=== PATIENT | female | born 1950 | race Caucasian/White ===

== ENCOUNTER → 2017-08-19 | Outpatient (CLI) | payer OTHER ==
[~2017-08-19] MED LIST: ALENDRONATE SOD70 MG PO; ASPIR 8181 MG PO; ATORVASTATIN CA40 MG PO; CELEXA40 MG PO; CENTRUM SILVER1 EAC4 PO; COREG3.125 MG PO; EQUETRO200 MG PO; HEADACHE RELIE1 EAC4 PO; HYDROCHLOROTHIA25 M2 PO; KRILL OIL500 MG; MAGNESIUM OXID400 MG PO; METFORMIN HCL500 MG PO; PROBIOTIC1 EAC1 PO; QUINAPRIL HCL40 MG PO; VITAMIN D2000 UNIT PO
== END ==
LOC: RAD 10:48
DX: M19.041 Primary osteoarthritis, right hand (principal); M25.741 Osteophyte, right hand

== ENCOUNTER → 2018-03-24 | Outpatient (CLI) | payer OTHER | LOC: RAD 11:12 | DX: Z12.31 Encounter for screening mammogram for malignant neoplasm of breast (principal); M47.812 Spondylosis without myelopathy or radiculopathy, cervical region; E11.9 Type 2 diabetes mellitus without complications; M25.78 Osteophyte, vertebrae ==

== ENCOUNTER → 2018-04-09 | Outpatient (CLI) | payer OTHER | LOC: RAD 03:15 | DX: R92.2 Inconclusive mammogram (principal) ==

== ENCOUNTER → 2018-06-23 | Outpatient (CLI) | payer OTHER | LOC: NUC 09:25 | DX: M81.0 Age-related osteoporosis without current pathological fracture (principal); M85.88 Other specified disorders of bone density and structure, other site; Z78.0 Asymptomatic menopausal state ==

== ENCOUNTER → 2018-10-27 | Outpatient (CLI) | payer OTHER | LOC: BC 05:45 → RAD 05:45 | DX: R92.8 Other abnormal and inconclusive findings on diagnostic imaging of breast (principal) ==

== ENCOUNTER → 2018-11-03 | Outpatient (CLI) | payer OTHER ==
--- NOTE | 2018-11-04 15:07 | PATH ---
[facility] [place] [address] PATHOLOGY RPT PROCEDURE Name: LUTHER ARRIAZA Room #: REG TYE M.R.#: [id number] ������������������ Admission: 11/03/18 ������������������ Date of : 46 Discharge: Report #: [id number] Path Case #: [id number] [facility] Accession Number: [id number] . 01 Material submitted: . breast - LT BREAST MASS 6:00, 2 CM FN. Modifiers: left, 6:00, 2 CMFN . 01 Clinical history: . Lt breast mass . 02 Diagnosis: Breast, left breast 6:00 2 cm from nipple, needle core biopsy: - INVASIVE MODERATELY DIFFERENTIATED DUCTAL ADENOCARCINOMA, AILYN GRADE 2 MEASURING 1.7 CM IN GREATEST DIMENSION IN A SINGLE CORE IN CONTIGUOUS LENGTH. - BACKGROUND OF DUCTAL CARCINOMA IN SITU, LOW TO INTERMEDIATE NUCLEAR GRADE WITH CRIBRIFORM FEATURES. LBQ/11/04/2018 . 02 Comment: Specimen type: Needle core biopsy Tumor site: Left breast 6:00 2 cm from nipple Tumor quantitation: 1.7 cm Histologic type: Invasive ductal carcinoma Histologic grade: [place] grade 2 Tubules, nuclei and mitoses: 3, 2 and 1 respectively LVSI: Not identified Microcalcifications: Not identified Markers: ER, PA, Ki-67 and HER-2/erik Block: A1 . Co-review: Dr. Hayes Caicedo . Findings of this case are telephoned to Ms. [facility] at [facility] at 11:43 a.m. on 11/04/18. (IUV/db; 11/04/2018) . 02 Electronically signed: . Laura Braxton MD, Pathologist NPI- [id number] . 01 Gross description: . The specimen is received in formalin, labeled "Luther Arriaza L breast 6:00-2 cm" and consists of 8 needle cores of yellow tissue measuring between 0.3 cm and 1.7 cm in length and 0.2 cm each in diameter. They are entirely submitted in A1-A3. The specimen was collected at 9:40 AM on 11/03/2018 and placed in formalin at 9:40 AM. [place] [address] PATHOLOGY RPT PROCEDURE Name: LUTHER ARRIAZA Room #: REG CLI [facility]#: [id number] ������������������ Admission: 11/03/18 ������������������ Date of : 46 Discharge: Report #: [id number] Path Case #: [id number] less than 1 minute and the total formalin fixation time is greater than 6 hours but less than 72 hours. (SDY; 11/03/2018) SYU/SYU . 02 Pathologist provided ICD-10: C50.912, D05.12 . 02 CPT . 300555 Specimen Comment: A courtesy copy of this report has been sent to Specimen Comment: [phone], . Specimen Comment: Report sent to / DR STORY Performed at: [address] [facility], [place], [place] [id number] MD Zan Pal MD Phone: [phone] Performed at: [address] [id number] MD Laura Braxton MD Phone: [phone]
== END | disposition home or self-care (01) ==
LOC: RAD 01:10
DX: C50.912 Malignant neoplasm of unspecified site of left female breast (principal); Z88.8 Allergy status to other drugs, medicaments and biological substances; Z79.899 Other long term (current) drug therapy; Z98.890 Other specified postprocedural states; Z79.82 Long term (current) use of aspirin

== ENCOUNTER → 2019-01-26 | Outpatient (CLI) | payer OTHER | LOC: NUC 01-22 14:29 | DX: M81.0 Age-related osteoporosis without current pathological fracture (principal); M85.851 Other specified disorders of bone density and structure, right thigh; M85.852 Other specified disorders of bone density and structure, left thigh; I10 Essential (primary) hypertension; E78.5 Hyperlipidemia, unspecified; E11.9 Type 2 diabetes mellitus without complications; Z78.0 Asymptomatic menopausal state ==

== ENCOUNTER → 2021-02-10 | Outpatient (CLI) | payer OTHER | LOC: RAD 11:02 | PROVIDERS: ATTEND Nurse Practitioner | DX: R05.9 Cough, unspecified (principal); I51.7 Cardiomegaly ==